=== PATIENT | female | born 1955 | race Caucasian/White ===

== ENCOUNTER 2017-03-07 07:53 | Day surgery (SDC) | payer OTHER ==
[~2017-03-07] VITALS: Ht 167.6 cm; Wt 93.0 kg
--- NOTE | 2017-03-07 07:09 | PCM.HPANE ---
Patient Data Surgeon Admitting Provider: Attending Provider:Carter Ribeiro MD Primary Care Physician:Christina Bowers MD Other Provider:Radha Sandovalingham Anesthesia Reason for Visit Polyp Of Colon Ht/WT & BMI Body Mass Index Allergies Coded Allergies: Adhesives (Verified Allergy, Unknown, UNKNOWN, 09/13/13) Sulfa (Sulfonamide Antibiotics) (Verified Allergy, Unknown, 03/03/17) diclofenac (Verified Allergy, Unknown, 03/03/17) sulfamethoxazole (Verified Allergy, Unknown, 03/03/17) trazodone (Verified Allergy, Unknown, 03/03/17) trimethoprim (Verified Allergy, Unknown, 03/03/17) Past Anesthesia History Anesthesia History: Denies:: Abnormal Airway, Anesthesia Reactions, Difficult Intubation, Fam Anesthesia Reaction, Fam Malignant Hypertherm, Malignant Hyperthermia Diabetes History Hx Diabetes?: No MRSA MRSA: No Medications Reported Medications Aspirin 81 Mg [id number] Mg PO BID Ref 0 03/07/17 Lisinopril 20 Mg [id number] Mg PO DAILY 30 Days Ref 0 03/03/17 Gabapentin 300 Mg [id number] Mg PO QID Ref 0 03/03/17 IBUPROFEN-Expunged Drug, Do Not Renew! 600 Mg Svxzsu187 Mg PO TID 09/04/13 Acyclovir-Expunged Drug, Do Not Renew! 400 Mg Tsfris479 Mg PO BID 09/04/13 Hydrochlorothiazide-Expunged, Do Not Renew! 25 Mg Cumspx29 Mg PO DAILY 09/04/13 Discontinued Reported Medications Methocarbamol 500 Mg [id number] Mg PO BID 03/03/17 Lisinopril-Expunged Drug, Do Not Renew! 20 Mg Jkfsew09 Mg PO DAILY 09/04/13 Theophylline-Expunged Drug, Do Not Renew! (Dyvt-PBA-Ffbsvjam Drug, Do Not Renew! )100 Mg Mikx400 Mg PO BID 09/04/13 Tocopherol-Expunged Drug, Do Not Renew! (Vitamin E-Expunged Drug, Do Not Renew!) 400 Unit Cap1 Cap PO DAILY 09/04/13 Vitamin B Complex (Balanced B-100)1 Each Tablet1 Each PO BID 09/04/13 Chromium (Chromium Gtf)200 Mcg Avvtca676 Mcg PO DAILY 09/04/13 Cholecalciferol-Expunged Drug, Do Not Renew! (Vitamin D3-Expunged Drug, Do Not Renew!)1,000 Unit Tablet2,000 Units PO DAILY 09/04/13 Zinc Amino Acid Chelate (Zinc)50 Mg Fhdqbk14 Mg PO DAILY 09/04/13 PNV CMB#95/FERROUS FUMARATE/FA-Expunged Drug, (-Expunged Drug, Do Not Renew!)1 Each Tablet1 Each PO DAILY 09/04/13 Flaxseed (Flaxseed Oil)1,000 Mg Capsule1,400 Mg PO DAILY 09/04/13 History History of ENT Problems?: Yes HEENT History: Denies:: Abnormal Airway Cataracts Difficult Intubation Dysphagia Glaucoma Hearing Problem Sinus Problem TMJ Denture Type: None Teeth Condition: Within Normal Limits Hx of Heart Problems?: Yes Cardiovascular History: Positive for:: Hypertension Irregular Heartbeat (HX PVC'S) Hx of Respiratory Problem?: Yes Respiratory History: Positive for:: Asthma Denies:: Use of C-PAP Machine Hx Neurologic Problems?: Yes Hx of GI Problems?: Yes Hx of Problems?: Yes Genitourinary History: Positive for:: Kidney Stones (S/P LITHOTRIPSY) Female Hx: Positive for:: Problems with Breasts? (S/P BREAST BX) Denies:: Currently Skin History: Denies:: History Skin Disorders? Pressure Ulcers Hx Musculoskeletal Problems?: Yes Musculoskeletal History: Positive for:: Musculoskeletal Trauma (S/P ORIF RT ANKLE,RT ANKLE HDWRE REMOVAL,KNEE SCOPE) Denies:: Back Injury (C/OF BACK PAIN) Hx of Psycho/Social Problems?: No Hx Surgeries?: Yes (ORIF RT ANKLE W/ HRDWRE REMOVAL,TRIGGER FINGER,APPY,HYST,T& A,KNEE SCOPE,EXP) Hx Any Other Health Problems?: Yes Other History: Denies:: Cancer Endocrine Disease Hospitalization Thyroid Disease History Blood Transfusions: Denies:: Blood Transfusions Hx Diabetes: No Hx Alcohol Use: YesHx Substance Use: NoHave You Smoked inLast 12 mo: No Stop/Bang Risk Assessment Category Category 1A: Patient has history of documented sleep apnea, and HAS NOT received any narcotic, sedative or anesthesia administration during this stay. Category 1B: Patient has history of documented sleep apnea, and HAS received any narcotic , sedative or anesthesia administration during this stay Category 2: Patient has SUSPECTED Obstructive Sleep Apnea, and HAS received any narcotic , sedative or anesthesia administration during this stay. Category 3: Patient has SUSPECTED Obstructive Sleep Apnea and HAS NOT received narcotic, sedative or anesthesia administration during this stay. Category 4: Outpatient in Procedural Areas with known sleep apnea or who screen positive for High Risk via the STOP/BANG questionnaire. Exam Exam General Appearance: Alert, Cooperative, No Acute Distress HEENT/AIRWAY: MP 2, Neck Movement (wnl), Mouth Opening (from) Lungs: Clear to Auscultation Heart: Exam Unremarkable Plan Impression Patient chart reviewed, patient interviewed and anesthestic plan with risks, benefits, and alternatives discussed, and informed consent obtained. ASA Physical Status: ASA2 Mod Systemic Disease Anesthetic Plan: GA Bene/Risks/Altern/Consents: Yes HP Complete Prior to Induction: Yes Bernardo Borrego MD March 07, 2017 07:09
[~2017-03-07 07:53] MED LIST: GABA-502 PO; HCTZ25 PO; IBUP-1149 PO; LISI-567 PO; ROB500 PO; ZES20T PO; [UNRECOGNIZED DRUG - CODE] PO
[2017-03-07] MEDS ORDERED: Propofol 10,000 mCg/mL 20 mL Inj ONE (07:54)
[2017-03-07] MEDS ORDERED: fentaNYL-PF 50 mCg/mL 2 mL Inj ONE (07:54)
[2017-03-07 08:23] VITALS: BP 116/65; PULSE 68; RESP 14; O2SAT 99
[2017-03-07] MEDS ORDERED: ASPI-973 PO (08:33)
[2017-03-07] MEDS ORDERED: Ondansetron 2 mg/mL 2 mL Inj IVPUSH PRN (09:00)
[2017-03-07] MEDS ORDERED: MetoCLOpramide 5 mg/mL 2 mL Inj IVPUSH PRN (09:00)
[2017-03-07] MEDS: Lactated Ringer's 1,000 ML IV SCH ×2 (09:18→10:05)
[2017-03-07 09:36] VITALS: BP 81/40; PULSE 60; RESP 16; O2SAT 96
[2017-03-07 09:48] VITALS: BP 98/53; PULSE 67; RESP 16; O2SAT 97
[2017-03-07 09:51] VITALS: BP 98/53; PULSE 62; RESP 16; O2SAT 97
--- NOTE | 2017-03-07 09:57 | ENDO ---
[address] [address] ENDOSCOPY PROCEDURE PATIENT: ILA WHEELER : 1955 MR#: [id number] ADMIT: 03/07/2017 JOB ID: [id number] DATE: 03/07/2017 PRIMARY PROVIDER: Christina Bowers M.D. PROCEDURE: Colonoscopy. INDICATIONS: A 61-year-old female with a personal history of colon polyps returning for surveillance. EQUIPMENT: [employer] H [employer] [place]. SEDATION: Monitored anesthesia as provided by Dr. Jules Borrego. COMPLICATIONS: None identified. BOWEL PREPARATION: Fair at best. PROCEDURAL INFORMATION: After the risks and benefits were explained, written and verbal informed consent was obtained. The patient was brought into the endoscopy suite and placed into the left lateral decubitus position. Sedation was achieved as above. A digital rectal examination accomplished. No significant pathology appreciated. The scope was introduced into the rectum and advanced to the cecum as identified by the appendiceal orifice and ileocecal valve. The scope was slowly withdrawn to carefully examine the mucosa for any defects or lesions. Retroflexed views were avoided in the rectum. Multiple direct views were made through the dentate line for exclusion of pathology. The colon was decompressed. The scope was removed from the patient who tolerated the procedure well. FINDINGS: No significant polyps, mass lesions, or inflammatory features identified throughout. ENDOSCOPIC DIAGNOSIS: Visually unremarkable colonoscopy to cecum. RECOMMENDATIONS: Repeat colonoscopy in five years' time considering personal history of colon polyps.
--- NOTE | 2017-03-07 13:25 | PCM.ANEP1 ---
Post Anesthesia PACU Phase 1 Assessment Vital Signs Vital Signs Date Time Temp Pulse Resp B/P Pulse Ox O2 Delivery O2 Flow Rate FiO2 03/07/17 09:51 62 16 98/53 97 Room Air 03/07/17 09:48 67 16 98/53 97 Room Air 03/07/17 09:36 36.6 60 16 81/40 96 Room Air 03/07/17 08:23 68 14 116/65 99 Room Air Anesthetic Administered: GA Level of Alertness: Awake, talking EDWARDS's with Equal Strength: Yes Pain: No Nausea or Vomiting: No CV Function & Hydration Stable: Yes Airway Device: Oxygen Delivery: Room Air Lungs: Normal Air Movement PACU Phase 2 Assessment Complications: No Follow up Care: No Patient Instructions Provided: N/A Bernardo Borrego MD March 07, 2017 13:25
== END 2017-03-07 23:59 | disposition home or self-care (01) ==
LOC: END 07:53
PROVIDERS: ATTEND Internal Medicine Gastroenterology
DX: Z12.11 Encounter for screening for malignant neoplasm of colon (principal); Z86.010 Personal history of colon polyps; I10 Essential (primary) hypertension; J45.30 Mild persistent asthma, uncomplicated; M48.06 Spinal stenosis, lumbar region; M54.16 Radiculopathy, lumbar region; M16.11 Unilateral primary osteoarthritis, right hip; D35.00 Benign neoplasm of unspecified adrenal gland; Z90.710 Acquired absence of both cervix and uterus; Z96.641 Presence of right artificial hip joint; Z87.891 Personal history of nicotine dependence; Z79.82 Long term (current) use of aspirin; Z87.442 Personal history of urinary calculi
CPT/HCPCS: G0105; J2250; J3010; J7120